=== PATIENT | female | born 1945 | race Caucasian/White ===

== ENCOUNTER 2019-08-22 11:17 | Outpatient (CLI) | payer MEDICARE ==
--- NOTE | 2019-08-22 12:36 | ULT ---
HEPATIC ULTRASOUND WITH GRIMALDO SCALE AND COLOR FLOW AND SPECTRAL DOPPLER IMAGING: Date: 08/22/19 HISTORY: Steatosis of liver. Right upper quadrant pain and back pain. FINDINGS: The liver demonstrates increased and coarse echogenicity without focal mass or intrahepatic ductal di latation. The patient is post cholecystectomy. The common duct measures 4.0 mm in diameter. The splee n measures 12.0 cm in length and is normal. The pancreas is not well visualized due to overlying rossana l gas. There is normal flow and spectral waveforms in the hepatic, splenic, and portal vasculature. No free fluid is seen in the right upper quadrant. IMPRESSION: 1. Fatty liver. 2. Status post cholecystectomy. POS: [facility]
== END 2019-08-22 11:18 | disposition home or self-care (01) ==
LOC: SCSULT 11:17
PROVIDERS: ATTEND Physician Assistant Medical
DX: K76.0 Fatty (change of) liver, not elsewhere classified (principal); R10.11 Right upper quadrant pain; Z90.49 Acquired absence of other specified parts of digestive tract
CPT/HCPCS: 76705